=== PATIENT | male | born 1945 | race Two or more races ===

== ENCOUNTER 2023-06-23 21:14 | Emergency (ER) | payer MEDICARE, OTHER ==
[~2023-06-23] VITALS: Ht 167.6 cm; Wt 78.9 kg
[2023-06-23] MEDS ORDERED: MORPHINE SULFATE 2 MG/1 ML DISP.SYRIN IV ONE (22:00)
[2023-06-23] MEDS ORDERED: METOCLOPRAMIDE HCL 10 MG/2 ML VIAL IV ONE (22:00)
[2023-06-23] MEDS ORDERED: METOCLOPRAMIDE HCL 10 MG/2 ML VIAL ONE (22:01)
[2023-06-23] MEDS ORDERED: MORPHINE SULFATE 2 MG/1 ML DISP.SYRIN ONE (22:02)
[2023-06-23 22:14] LABS: ABG BASE EXCESS 4.3 mmol/L (-2.0-2.0); ABG HCO3 27.7 mmol/L (22.0-26.0); ABG PCO2 37.4 mmHg (35.0-48.0); ABG PH 7.487 (7.340-7.440); ABG PO2 72.8 mmHg (75.0-100.0); ABG SITE LEFT RADIAL; ABG TOTAL HEMOGLOBIN 15.1 G/dL (14.0-18.0); AaDO2 95.7 mmHg; COHb 0.6 % (0.0-3.9); MetHb 0.2 % (0.0-1.5); O2Hb 94.2 % (94.0-97.0)
[2023-06-23 22:25] LABS: BASOPHILS # (AUTO) 0.1 K/UL (0.0-0.2); BASOPHILS % (AUTO) 0.8 % (0.0-2.0); EOSINOPHILS # (AUTO) 0.2 K/uL (0.0-0.7); EOSINOPHILS % (AUTO) 2.1 % (0.0-7.0); HEMATOCRIT 43.9 % (36.7-47.1); HEMOGLOBIN 14.3 g/dL (12.5-16.3); LYMPHOCYTES # (AUTO) 2.1 K/uL (0.8-4.8); LYMPHOCYTES % (AUTO) 23.2 % (20.5-51.5); MEAN CORPUSCULAR HEMOGLOBIN 30.6 uug (23.8-33.4); MEAN CORPUSCULAR HGB CONC 33 g/dL (32.5-36.3); MEAN CORPUSCULAR VOLUME 94.2 fL (73.0-96.2); MONOCYTES # (AUTO) 1.3 K/uL (0.1-1.30); MONOCYTES % (AUTO) 15.2 % (0.0-11.0); NEUTROPHILS # (AUTO) 5.2 K/uL (1.8-8.9); NEUTROPHILS % (AUTO) 58.7 % (38.5-71.5); PLATELET COUNT (AUTO) 303 K/uL (152-348); RED BLOOD CELL COUNT(AUTO) 4.66 MIL/uL (4.06-5.63); WHITE BLOOD COUNT (AUTO) 8.8 K/uL (3.6-10.2)
[2023-06-23 22:28] LABS: DIFFERENTIAL COMMENT 1
[2023-06-23 22:34] LABS: CALCIUM 8.8 mg/dL (8.5-10.1); CARBON DIOXIDE 30 mmol/L (21-32); CHLORIDE 105 mmol/L (98-107); GLUCOSE 110 mg/dL (74-106); POTASSIUM 3.9 mmol/L (3.5-5.1); SODIUM SERUM 142 mmol/L (136-145); UREA NITROGEN, BLOOD 20 mg/dL (7-18)
[2023-06-23] MEDS ORDERED: IV NS 1000 ML 1,000 ML IV ONE (22:45)
[2023-06-23 22:48] LABS: ALANINE AMINOTRANSFERASE 40 U/L (16-63); ALBUMIN 3.7 g/dL (3.4-5.0); ALKALINE PHOSPHATASE 57 U/L (50-136); ASPARTATE AMINOTRANSFERASE 20 U/L (15-37); BILIRUBIN,DIRECT 0.1 mg/dL (0.0-0.2); BILIRUBIN,TOTAL 0.5 mg/dL (0.2-1.0); NT-PRO BNP 503 pg/mL (0-125); TOTAL PROTEIN, SERUM 6.9 g/dL (6.4-8.2)
[2023-06-23 22:56] LABS: NEUTROPHILS % (MANUAL) 0 % (42-75)
[2023-06-23] MEDS ORDERED: SIMETHICONE 80 MG TAB.CHEW PO ONE (23:00)
[2023-06-23] MEDS ORDERED: SIMETHICONE 80 MG TAB.CHEW ONE (23:18)
[2023-06-24 01:35] VITALS: BP 116/68; TEMP 99; O2SAT 95
== END 2023-06-24 01:35 | disposition left against medical advice (07) ==
LOC: ER 21:14
DX: R06.00 Dyspnea, unspecified (principal); R14.0 Abdominal distension (gaseous); E78.5 Hyperlipidemia, unspecified; I50.9 Heart failure, unspecified; R07.89 Other chest pain
CPT/HCPCS: 99284; 96374; 71045; 96361; 80076; 80048; 83880; 85025; 85379; 36415; 74021; 36600; 85007; J2765; J2270; J7040; 70030-TC; A4606; A4663